=== PATIENT | male | born 1975 | race Caucasian/White ===

== ENCOUNTER 2016-12-25 10:15 | Emergency (ER) | payer BC ==
[2016-12-25 10:28] VITALS: BP 81/50
--- NOTE | 2016-12-25 11:16 | EDM.PDOC ---
[id number]: PAIN,CONFUSION Time Seen by Provider: 12/25/16 10:40 Source of Information: Reports: Patient History Limitations: Reports: Intoxication - History of Present Illness INITIAL COMMENTS - FREE TEXT/NARRATIVE: 41-year-old male is intoxicated this morning, complaining of intermittent fevers and joint pains and is concerned about Lyme's disease. He is intoxicated because he has had a very "bad family day" but won't elaborate. He has no intention of self-harm, no history of treatment and denies drinking daily. He just wants some blood tests. Onset: Unknown/Unsure Associated Symptoms: Reports: Confusion, Other (Generalized body aches). Denies : Headaches - Related Data Allergies Allergy/AdvReac Type Severity Reaction Status Date / Time No Known Allergies Allergy Verified 08/12/15 12:38 Home Meds: Home Meds NK [No Known Home Meds] 08/12/15 [History] Past Medical History HEENT History: Reports: None Musculoskeletal History: Reports: Fracture - Past Surgical History HEENT Surgical History: Reports: None GI Surgical History: Reports: Cholecystectomy Musculoskeletal Surgical History: Reports: Shoulder Surgery, Other (See Below) Other Musculoskeletal Surgeries/Procedures:: question tic illness states joint hurt Social & Family History - Tobacco Use Smoking Status *Q: Never Smoker Second Hand Smoke Exposure: No - Caffeine Use Caffeine Use: Reports: None - Alcohol Use Days Per Week of Alcohol Use: 7 Number of Drinks Per Day: 3 Total Drinks Per Week: 21 Date of Last Drink: 12/25/16 - Recreational Drug Use Recreational Drug Use: No ED ROS GENERAL - Review of Systems Review Of Systems: See Below Constitutional: Reports: Fever (Intermittent, none at this time) HEENT: Denies: Throat Pain Respiratory: Denies: Shortness of Breath, Cough Cardiovascular: Denies: Chest Pain GI/Abdominal: Denies: Abdominal Pain Musculoskeletal: Reports: Joint Pain (Diffuse, especially shoulders), Muscle Pain Skin: Reports: No Symptoms Neurological: Denies: Headache Psychiatric: Reports: Depression (Patient is tearful, not only intoxicated but looks depressed) ED EXAM, GENERAL - Physical Exam Exam: See Below Exam Limited By: Intoxication General Appearance: Alert, No Apparent Distress Eye Exam: Bilateral Eye: EOMI, Other (No jaundice) Respiratory/Chest: No Respiratory Distress, Lungs Clear Cardiovascular: Regular Rate, Rhythm Extremities: No: Joint Swelling, Redness Neurological: Alert Psychiatric: Depressed Mood Skin Exam: Warm, Dry Course - Vital Signs Last Recorded V/S: Last Vital Signs Temp 97.9 F 12/25/16 10:26 Pulse 86 12/25/16 10:26 Resp 20 12/25/16 10:26 BP 81/50 L 12/25/16 10:26 Pulse Ox - Orders/Labs/Meds Orders: Active Orders 24 hr Category Date Time Status BABESIA MICROTI IGG AND IGM [REF] Stat Lab 12/25/16 11:00 Received EHRLICHIA CHAFFEENSIS, IGG&IGM [REF] Stat Lab 12/25/16 11:00 Received LYME AB SCREEN RFLX [REF] Stat Lab 12/25/16 11:00 Received Labs: Laboratory Tests 12/25/16 12/25/16 12/25/16 Range/Units 11:00 11:00 11:00 WBC 8.4 (4.5-11.0) K/uL RBC 4.97 (4.30-5.90) M/uL Hgb 15.2 H (12.0-15.0) g/dL Hct 44.8 (40.0-54.0) % MCV 90 (80-98) fL MCH 31 (27-31) pg MCHC 34 (32-36) % Plt Count 310 (150-400) K/uL Neut % (Auto) 67 H (36-66) % Lymph % (Auto) 25 (24-44) % [place] % (Auto) 7 H (2-6) % Eos % (Auto) 0 L (2-4) % Baso % (Auto) 1 (0-1) % Sodium 139 L (140-148) mmol/L Potassium 4.1 (3.6-5.2) mmol/L Chloride 99 L (100-108) mmol/L Carbon Dioxide 27 (21-32) mmol/L Anion Gap 17.1 H (5.0-14.0) mmol/L BUN 10 (7-18) mg/dL Creatinine 1.0 (0.8-1.3) mg/dL Est Cr Clr Drug Dosing 104.58 mL/min Estimated GFR (MDRD) > 60 (>60) Glucose 91 (74-106) mg/dL Calcium 8.6 (8.5-10.1) mg/dL Total Bilirubin 0.3 (0.2-1.0) mg/dL AST 193 H (15-37) U/L ALT 178 H (12-78) U/L Alkaline Phosphatase 142 H (46-116) U/L Total Protein 8.3 H (6.4-8.2) g/dL Albumin 3.6 (3.4-5.0) g/dL Globulin 4.7 H (2.3-3.5) g/dL Albumin/Globulin Ratio 0.8 L (1.2-2.2) Ethyl Alcohol 375 mg/dL - Re-Assessments/Exams Free Text/Narrative Re-Assessment/Exam: 12/25/16 11:15 CBC, CMP, EtOH, Lymes, ehrlichiosis and babesiosis were obtained. 12/25/16 11:48 CBC was normal, CMP showed elevated liver enzymes and EtOH was 0.375. He did admit to the nursing staff that he was a daily drinker. We discussed his symptoms being related to chronic alcohol abuse, he is going on a trip for 5 days but then will consider treatment options when he returns. I think it is unlikely he has a tickborne illness. No antibiotic will be started pending lab results. Departure - Departure Time of Disposition: 11:58 Disposition: Home, Self-Care 01 Condition: Fair Clinical Impression: Alcohol abuse - Discharge Information Referrals: Mohan Carlton MD [Primary Care Provider] - Forms: ED Department Discharge Additional Instructions: Try to taper alcohol use over the next several days or stop if possible. Consider treatment options when you return from your vacation. Return for other concerns such as fever or increased joint pain or rash. - My Orders Last 24 Hours: My Active Orders 12/25/16 11:00 BABESIA MICROTI IGG AND IGM [REF] Stat EHRLICHIA CHAFFEENSIS, IGG&IGM [REF] Stat LYME AB SCREEN RFLX [REF] Stat - Assessment/Plan Last 24 Hours: My Active Orders 12/25/16 11:00 BABESIA MICROTI IGG AND IGM [REF] Stat EHRLICHIA CHAFFEENSIS, IGG&IGM [REF] Stat LYME AB SCREEN RFLX [REF] Stat
== END 2016-12-25 11:57 | disposition home or self-care (01) ==
LOC: JP.ED 10:15
DX: F10.10 Alcohol abuse, uncomplicated (principal); Y90.8 Blood alcohol level of 240 mg/100 ml or more; Z98.890 Other specified postprocedural states
CPT/HCPCS: 80053; 85025; 86618; 86666; 86753; 99285; G0480; 36415

== ENCOUNTER 2019-09-25 01:30 | Emergency (ER) | payer BC ==
[2019-09-25] MEDS ORDERED: Sodium Chloride 0.9% 1,000 ML IV SCH ×3 (01:45→04:00)
--- NOTE | 2019-09-25 02:06 | EDM.PDOC ---
ED HPI GENERAL MEDICAL PROBLEM - General Chief Complaint: Drug or Alcohol Abuse Stated Complaint: [facility] Time Seen by Provider: 09/25/19 02:02 Source of Information: Reports: Patient, EMS, Other (His friends checked on him and found him passed out intoxicated but when he woke up he was not connecting and seemed like he did not recall what he had taken, what he had drank and exactly what had occured tonight. ) - History of Present Illness Onset: Today Duration: Hour(s):, Other (pt was passed out about 6 pm when his buddies checked on him. The pt states he had a bad day and he did say he was having some personal issues. ) Location: Reports: Generalized Associated Symptoms: Reports: Confusion, Other (pt has been drinking etoh tonight. There were no pill bottles in the area. ) - Related Data Allergies Allergy/AdvReac Type Severity Reaction Status Date / Time No Known Allergies Allergy Verified 08/12/15 12:38 Home Meds: Home Meds NK [No Known Home Meds] 08/12/15 [History] Past Medical History HEENT History: Reports: None Musculoskeletal History: Reports: Fracture - Past Surgical History HEENT Surgical History: Reports: None GI Surgical History: Reports: Cholecystectomy Musculoskeletal Surgical History: Reports: Shoulder Surgery, Other (See Below) Other Musculoskeletal Surgeries/Procedures:: question tic illness states joint hurt Social & Family History - Tobacco Use Smoking Status *Q: Never Smoker Second Hand Smoke Exposure: No - Caffeine Use Caffeine Use: Reports: Coffee, Soda ED ROS GENERAL - Review of Systems Review Of Systems: See Below Constitutional: Reports: No Symptoms HEENT: Reports: No Symptoms Respiratory: Reports: No Symptoms Cardiovascular: Reports: No Symptoms Endocrine: Reports: No Symptoms GI/Abdominal: Reports: No Symptoms : Reports: No Symptoms Musculoskeletal: Reports: No Symptoms Skin: Reports: No Symptoms Neurological: Reports: Confusion, Other (pt is very vague and not making sense. He has appeared to be abusing etoh. He has been to detox once. He seemed at first to just be intoxicated and then he just wasn,t making sense at all. ) Psychiatric: Reports: Confusion - Physical Exam Exam: See Below Text/Narrative:: pt arrived very vague and confused. He just did not appear to be with what was going on. He has been drinking and [place]raw has not drank since 8 pm and he has a etoh of almost a .4. He has had a drinking problem for awhile, Exam Limited By: No Limitations General Appearance: Alert, Anxious, Obtunded, Other (pt is not with what is happening. ) Ears: Normal TMs Nose: Normal Inspection Throat/Mouth: Normal Inspection, Other (Pt did have chew in his mouth when he was examined. ) Head Exam: Atraumatic Neck: Normal Inspection Respiratory/Chest: No Respiratory Distress Cardiovascular: Regular Rate, Rhythm, Tachycardia, Other (heart rate was 130 on arrival--sinus) GI/Abdominal: Soft, Non-Tender (Male) Exam: Deferred Rectal (Males) Exam: Deferred Neuro Exam (Abbreviated): Alert, Inattentive, Confused, Memory Loss Recent Events Back Exam: Normal Inspection Extremities: Normal Inspection Course - Vital Signs Last Recorded V/S: Last Vital Signs Temp 36.3 C 09/25/19 01:58 Pulse 120 H 09/25/19 03:59 Resp 9 L 09/25/19 03:59 BP 134/80 09/25/19 03:59 Pulse Ox 98 09/25/19 03:59 - Orders/Labs/Meds Orders: Active Orders 24 hr Category Date Time Status Bladder Scan [RC] ASDIRECTED Care 09/25/19 02:02 Active MISCELLANEOUS REFERENCE TEST Routine Lab 09/25/19 03:23 Received Labs: Laboratory Tests 09/25/19 09/25/19 09/25/19 Range/Units 01:38 01:38 01:38 WBC 11.5 H (4.5-11.0) K/uL RBC 5.12 (4.30-5.90) M/uL Hgb 15.6 H (12.0-15.0) g/dL Hct 46.0 (40.0-54.0) % MCV 90 (80-98) fL MCH 31 (27-31) pg MCHC 34 (32-36) % Plt Count 369 (150-400) K/uL Neut % (Auto) 59 (36-66) % Lymph % (Auto) 32 (24-44) % [place] % (Auto) 8 H (2-6) % Eos % (Auto) 0 L (2-4) % Baso % (Auto) 1 (0-1) % Sodium 138 L (140-148) mmol/L Potassium 3.9 (3.6-5.2) mmol/L Chloride 96 L (100-108) mmol/L Carbon Dioxide 21 (21-32) mmol/L Anion Gap 24.9 H (5.0-14.0) mmol/L BUN 20 H D (7-18) mg/dL Creatinine 1.3 (0.8-1.3) mg/dL Est Cr Clr Drug Dosing TNP Estimated GFR (MDRD) > 60 (>60) Glucose 103 (74-106) mg/dL Calcium 8.4 L (8.5-10.1) mg/dL Total Bilirubin 0.4 (0.2-1.0) mg/dL AST 60 H (15-37) U/L ALT 63 (12-78) U/L Alkaline Phosphatase 72 (46-116) U/L Ammonia (11-32) mmol/L Total Protein 8.3 H (6.4-8.2) g/dL Albumin 4.3 (3.4-5.0) g/dL Globulin 4.0 H (2.3-3.5) g/dL Albumin/Globulin Ratio 1.1 L (1.2-2.2) Urine Color (YELLOW) Urine Appearance (CLEAR) Urine pH (5.0-8.0) Ur Specific [place] (1.008-1.030) Urine Protein (NEGATIVE) mg/dL Urine Glucose (UA) (NEGATIVE) mg/dL Urine Ketones (NEGATIVE) mg/dL Urine Occult Blood (NEGATIVE) Urine Nitrite (NEGATIVE) Urine Bilirubin (NEGATIVE) Urine Urobilinogen (0.2-1.0) EU/dL Ur Leukocyte Esterase (NEGATIVE) Urine RBC (0-5) Urine WBC (0-5) Ur Epithelial Cells Amorphous Sediment Urine Bacteria Urine Mucus Urine Other Urine Opiates Screen (NEGATIVE) Ur Oxycodone Screen (NEGATIVE) Urine Methadone Screen (NEGATIVE) Ur Propoxyphene Screen (NEGATIVE) Ur Barbiturates Screen (NEGATIVE) Ur Tricyclics Screen (NEGATIVE) Ur Phencyclidine Scrn (NEGATIVE) Ur Amphetamine Screen (NEGATIVE) U Methamphetamines Scrn (NEGATIVE) Urine MDMA Screen (NEGATIVE) U Benzodiazepines Scrn (NEGATIVE) U Cocaine Metab Screen (NEGATIVE) U Marijuana (THC) Screen (NEGATIVE) Ethyl Alcohol 387 mg/dL 09/25/19 09/25/19 09/25/19 Range/Units 02:09 02:09 03:20 WBC (4.5-11.0) K/uL RBC (4.30-5.90) M/uL Hgb (12.0-15.0) g/dL Hct (40.0-54.0) % MCV (80-98) fL MCH (27-31) pg MCHC (32-36) % Plt Count (150-400) K/uL Neut % (Auto) (36-66) % Lymph % (Auto) (24-44) % [place] % (Auto) (2-6) % Eos % (Auto) (2-4) % Baso % (Auto) (0-1) % Sodium (140-148) mmol/L Potassium (3.6-5.2) mmol/L Chloride (100-108) mmol/L Carbon Dioxide (21-32) mmol/L Anion Gap (5.0-14.0) mmol/L BUN (7-18) mg/dL Creatinine (0.8-1.3) mg/dL Est Cr Clr Drug Dosing Estimated GFR (MDRD) (>60) Glucose (74-106) mg/dL Calcium (8.5-10.1) mg/dL Total Bilirubin (0.2-1.0) mg/dL AST (15-37) U/L ALT (12-78) U/L Alkaline Phosphatase (46-116) U/L Ammonia 10 L (11-32) mmol/L Total Protein (6.4-8.2) g/dL Albumin (3.4-5.0) g/dL Globulin (2.3-3.5) g/dL Albumin/Globulin Ratio (1.2-2.2) Urine Color Yellow (YELLOW) Urine Appearance Clear (CLEAR) Urine pH 5.5 (5.0-8.0) Ur Specific [place] >= 1.030 (1.008-1.030) Urine Protein >=300 H (NEGATIVE) mg/dL Urine Glucose (UA) Negative (NEGATIVE) mg/dL Urine Ketones 15 H (NEGATIVE) mg/dL Urine Occult Blood Trace-intact H (NEGATIVE) Urine Nitrite Negative (NEGATIVE) Urine Bilirubin Negative (NEGATIVE) Urine Urobilinogen 0.2 (0.2-1.0) EU/dL Ur Leukocyte Esterase Negative (NEGATIVE) Urine RBC 0-5 (0-5) Urine WBC 0-5 (0-5) Ur Epithelial Cells Rare Amorphous Sediment Rare Urine Bacteria Rare Urine Mucus Moderate Urine Other Urine Opiates Screen Negative (NEGATIVE) Ur Oxycodone Screen Negative (NEGATIVE) Urine Methadone Screen Negative (NEGATIVE) Ur Propoxyphene Screen Negative (NEGATIVE) Ur Barbiturates Screen Negative (NEGATIVE) Ur Tricyclics Screen Negative (NEGATIVE) Ur Phencyclidine Scrn Negative (NEGATIVE) Ur Amphetamine Screen Negative (NEGATIVE) U Methamphetamines Scrn Negative (NEGATIVE) Urine MDMA Screen Negative (NEGATIVE) U Benzodiazepines Scrn Negative (NEGATIVE) U Cocaine Metab Screen Negative (NEGATIVE) U Marijuana (THC) Screen Negative (NEGATIVE) Ethyl Alcohol mg/dL Meds: Medications Discontinued Medications Generic Name Dose Route Start Last Admin Trade Name Freq PRN Reason Stop Dose Admin Sodium Chloride 1,000 mls @ 999 mls/hr 09/25/19 01:45 09/25/19 01:46 Normal Saline IV 999 mls/hr ASDIRECTED YORDY Administration Sodium Chloride 1,000 mls @ 999 mls/hr 09/25/19 01:45 09/25/19 02:55 Normal Saline IV 999 mls/hr ASDIRECTED YORDY Administration Sodium Chloride 1,000 mls @ 250 mls/hr 09/25/19 04:00 09/25/19 04:00 Normal Saline IV 250 mls/hr ASDIRECTED YORDY Administration - Re-Assessments/Exams Free Text/Narrative Re-Assessment/Exam: 09/25/19 02:57 pt had a drug screen that was neg. He has a etoh of nearly 4. He has been doing alot of drinking since school has not been in session. Tonight when his friends checked on him he seemed just drunk and then all of a sudden he just was not making sense. His electrolytes look ok. He has a very concentrated urine. He has a normal wbc. 09/25/19 02:58pt was hydrated with 2 liters of fluid. 09/25/19 03:53pt has been drinking nonstop for 3 days. His sistet came and her and her friends are concerned that he is using something else becaus he has sudden episodes where he is very out of it. We talked about sending a more extensive drug screen to [facility] to prove whether thwre is more than etoh involved She really wanted this done. He did pirk up and was more normal when his siter was talking to him. He was given 2 liters of fluid as he was very dehydrated. Once he was making sense a discussion was held with him regarding detox and treatment. He agrees that he definitely needs treatment. 09/25/19 18:21 Departure - Departure Time of Disposition: 06:45 Disposition: DC/Tfer to [facility] Hosp/Unit [facility] Condition: Fair Clinical Impression: Intoxication - Discharge Information Referrals: PCP,None [Primary Care Provider] - Forms: ED Department Discharge Care Plan Goals: To [facility] Detox unit. -- Pts sister is willing to drive him to [facility] Sepsis Event Note - Evaluation Sepsis Screening Result: No Definite Risk - Focused Exam Date Exam was Performed: 09/25/19 Time Exam was Performed: 18:25 - My Orders Last 24 Hours: My Active Orders 09/25/19 02:02 Bladder Scan [RC] ASDIRECTED 09/25/19 03:23 MISCELLANEOUS REFERENCE TEST Routine - Assessment/Plan Last 24 Hours: My Active Orders 09/25/19 02:02 Bladder Scan [RC] ASDIRECTED 09/25/19 03:23 MISCELLANEOUS REFERENCE TEST Routine
[2019-09-25 02:34] VITALS: PULSE 120
--- NOTE | 2019-09-25 03:13 | CRLCT ---
INDICATION: Confusion TECHNIQUE: CT head without contrast. COMPARISON: None FINDINGS: CSF spaces: Within normal limits for age. Brain parenchyma: The anguiano-white differentiation is normal. No sign of mass, hemorrhage, or midline shift. Skull base and calvarium: The visualized paranasal sinuses and mastoid air cells demonstrate no acute or significant findings. The visualized orbits are grossly unremarkable. No skull fractures. IMPRESSION: Unremarkable noncontrast head CT. Dictated by Mohan Rainey MD @ 09/25/2019 3:12:15 AM Please note that all CT scans at this facility use dose modulation, iterative reconstruction, and/or weight-based dosing when appropriate to reduce radiation dose to as low as reasonably achievable. Dictated by: Mohan Rainey MD @ 09/25/2019 03:12:22 (Electronically Signed)
[2019-09-25 04:00] VITALS: BP 134/80
== END 2019-09-25 06:40 ==
LOC: JP.ED 01:30
DX: F10.129 Alcohol abuse with intoxication, unspecified (principal)
CPT/HCPCS: 36415; 51798; 70450; 80053; 80305; 80307; 81001; 82140; 85025; 96360; 96361; 99285; J7030

== ENCOUNTER 2024-04-26 07:48 | Day surgery (SDC) | payer BC ==
[2024-04-26] MEDS ORDERED: Propofol 200 MG/20 ML SDV ONE (08:51)
[2024-04-26] MEDS ORDERED: fentaNYL 50 MCG/ML SDV ONE (08:51)
[2024-04-26] MEDS ORDERED: Midazolam 1 MG/ML 2 ML SDV ONE (08:51)
[2024-04-26] MEDS: Sodium Chloride 0.9% 1,000 ML IV SCH (08:58)
[2024-04-26 11:05] VITALS: BP 118/62; PULSE 70
== END 2024-04-26 11:30 | disposition home or self-care (01) ==
LOC: JP.SDS 07:48
PROVIDERS: ATTEND Surgery
DX: K20.90 Esophagitis, unspecified without bleeding (principal); K22.89 Other specified disease of esophagus; N18.1 Chronic kidney disease, stage 1; F32.A Depression, unspecified; Z88.0 Allergy status to penicillin
CPT/HCPCS: 00731; 43239; J2250; J2704; J3010; J7030; 88305

== ENCOUNTER 2024-06-12 18:28 | Emergency (ER) | payer BC ==
[2024-06-12 19:04] LABS: BASOPHILS ABSOLUTE AUTO 0.03 K/uL (0.00-0.10); BASOPHILS PERCENT AUTO 0.3 % (0.1-1.3); EOSINOPHILS ABSOLUTE AUTO 0.05 K/uL (0.00-0.40); EOSINOPHILS PERCENT AUTO 0.5 % (0.0-5.4); HEMATOCRIT 43.5 % (38.4-49.7); HEMOGLOBIN 15.3 g/dL (12.9-16.9); IMMATURE GRAN ABSOLUTE AUTO 0.03 K/uL (0.00-0.23); IMMATURE GRAN PERCENT AUTO 0.3 % (0.0-0.7); LYMPHOCYTES PERCENT AUTO 8.3 % (11.4-47.7); MEAN CORPUSCULAR HEMOGLOBIN 29.9 pg (31.6-35.5); MEAN CORPUSCULAR HGB CONC 35.2 g/dL (31.6-35.5); MEAN CORPUSCULAR VOLUME 85.1 fL (81.4-99.0); MONOCYTES ABSOLUTE AUTO 0.69 K/uL (0.20-0.90); MONOCYTES PERCENT AUTO 6.3 % (3.3-12.6); NEUTROPHILS ABSOLUTE AUTO 9.17 K/uL (1.0-7.6); NEUTROPHILS PERCENT AUTO 84.3 % (40.0-78.1); PLATELET COUNT,PLT 244 K/uL (130-375); RED BLOOD CELL COUNT 5.11 M/uL (4.14-5.76); WHITE BLOOD CELL COUNT,WBC 10.9 K/uL (3.2-11.0)
[2024-06-12] MEDS: Ondansetron 4 MG/2 ML SDV IVPUSH ONE (19:11)
[2024-06-12] MEDS: Morphine 4 MG/ML Syringe IVPUSH ONE (19:13)
[2024-06-12 19:24] LABS: A/G RATIO 0.9 (1.2-2.2); ALANINE AMINOTRANSFERASE,ALT 305 U/L (12-78); ALBUMIN 3.7 g/dL (3.4-5.0); ALKALINE PHOSPHATASE 418 U/L (46-116); ASPARTATE AMNIOTRANSFERASE,AST 184 U/L (15-37); BILIRUBIN TOTAL 2.9 mg/dL (0.2-1.0); BLOOD UREA NITROGEN,BUN 10 mg/dL (7-18); CALCIUM 9.4 mg/dL (8.5-10.1); CARBON DIOXIDE,CO2 25 mmol/L (21-32); CHLORIDE,CL 101 mmol/L (100-108); CREATININE 1.1 mg/dL (0.8-1.3); ESTIMATED GFR 83 mL/min (>60); GLUCOSE RANDOM 110 mg/dL (74-106); POTASSIUM,K 3.3 mmol/L (3.6-5.2); PROTEIN TOTAL,TP 7.7 g/dL (6.4-8.2); SODIUM,NA 138 mmol/L (140-148)
[2024-06-12 19:25] LABS: ANION GAP 15.3 mmol/L (5.0-14.0)
[2024-06-12 19:37] LABS: APPEARANCE,URINE CLEAR (CLEAR); BILIRUBIN,URINE MODERATE (NEGATIVE); COLOR,URINE YELLOW (YELLOW); GLUCOSE,URINE NEGATIVE (NEGATIVE); KETONES,URINE 40 mg/dL (NEGATIVE); LEUKOCYTE ESTERASE,URINE NEGATIVE (NEGATIVE); NITRITE,URINE NEGATIVE (NEGATIVE); OCCULT BLOOD,URINE NEGATIVE (NEGATIVE); PROTEIN,URINE TRACE mg/dL (NEGATIVE)
[2024-06-12 19:38] LABS: AMPHETAMINES SCREEN, URINE NEGATIVE (NEGATIVE); BARBITURATE SCREEN,URINE NEGATIVE (NEGATIVE); BENZODIAZEPINES SCREEN,URINE NEGATIVE (NEGATIVE); METHADONE SCREEN, URINE NEGATIVE (NEGATIVE); METHAMPHETAMINES SCREEN, URINE NEGATIVE (NEGATIVE); OXYCODONE SCREEN,URINE NEGATIVE (NEGATIVE); PROPOXYPHENE SCREEN,URINE NEGATIVE (NEGATIVE); THC SCREEN,URINE 50 NG/ML PRESUMPTIVE POSITIVE (NEGATIVE)
[2024-06-12 19:40] LABS: AMORPHOUS SEDIMENT,URINE NOT SEEN; BACTERIA,URINE RARE; EPITHELIAL CELLS,URINE RARE; MUCUS,URINE NOT SEEN; RBC,URINE 0-5 (0-5); WBC,URINE 0-5 (0-5)
[2024-06-12] MEDS: Iopamidol 612 MG/ML 100 ML Bottle IV SCH (20:07)
[2024-06-12] MEDS: Sodium Chloride 0.9% 80 ML IV SCH (20:07)
[2024-06-12] MEDS: Sodium Chloride 0.9% 10 ML Syringe FLUSH ONE (20:07)
[2024-06-12] MEDS: LORazepam 1 MG Tab PO ONE (21:01)
[2024-06-12] MEDS: Sodium Chloride 0.9% 1,000 ML IV ONE (21:01)
[2024-06-12] MEDS ORDERED: Enoxaparin 40 MG/0.4 ML Syringe SUBCUT SCH (21:30)
[2024-06-12 22:44] VITALS: PULSE 96
[2024-06-13] MEDS: Sodium Chloride 0.9% 1,000 ML IV SCH (00:12)
[2024-06-13] MEDS: HYDROmorphone 0.5 MG/0.5 ML Syringe IVPUSH ONE ×2 (00:16→09:53)
[2024-06-13] MEDS: HYDROmorphone 0.5 MG/0.5 ML Syringe ONE (06:39)
[2024-06-13 06:48] VITALS: BP 134/91
== END 2024-06-13 10:12 ==
LOC: JP.ED 18:28
DX: K85.80 Other acute pancreatitis without necrosis or infection (principal); K83.8 Other specified diseases of biliary tract; R74.8 Abnormal levels of other serum enzymes; E78.00 Pure hypercholesterolemia, unspecified; K21.9 Gastro-esophageal reflux disease without esophagitis; Z90.49 Acquired absence of other specified parts of digestive tract; Z88.0 Allergy status to penicillin; Z79.899 Other long term (current) drug therapy
CPT/HCPCS: 36415; 74177; 80053; 80305; 80307; 81001; 83690; 85025; 85379; 96361; 96374; 96375; 96376; 99285; A9270; J1171; J2270; J2405; J3490; J7030; Q9967